=== PATIENT | male | born 1985 | race Caucasian/White ===

== ENCOUNTER 2017-04-26 13:00 | Emergency (ER) | payer OTHER ==
[2017-04-26 13:09] VITALS: RESP 16; TEMP 98.6
--- NOTE | 2017-04-26 13:16 | CPEKG ---
Heart Rate: 87 RR Interval: 690 P-R Interval: 144 QRSD Interval: 64 QT Interval: 356 QTC Interval: 429 P [place]: 79 QRS [place]: 56 T Wave [place]: 20 EKG Severity - NORMAL ECG - EKG Impression: SINUS RHYTHM Electronically Signed By: Irwin Corrales 26-Apr-2017 14:03:54
[2017-04-26] MEDS ORDERED: MAG HYDROX/AL HYDROX/SIMETH 30 ML UDCUP PO ONE (14:01)
[2017-04-26] MEDS ORDERED: LIDOCAINE 2% VISCOUS 15 ML UDCUP PO ONE (14:01)
[2017-04-26] MEDS ORDERED: HYOSCYAMINE SULFATE 0.125 MG TAB PO ONE (14:01)
--- NOTE | 2017-04-26 14:03 | EDPHY ---
H & P Stated Complaint: cp/sob/nausea x 2 days Time Seen by Provider: 04/26/17 13:20 HPI/ROS: CHIEF COMPLAINT: Substernal chest discomfort, dyspnea HISTORY OF PRESENT ILLNESS: The patient presents to the ED with a 2 day history of constant mild substernal chest discomfort with associated dyspnea. The patient states his pain is not positional or pleuritic. He denies history of fall or trauma. Patient denies history of productive cough. The patient has no prior history of the symptoms. He has no risk factors for coronary artery disease. The patient does not smoke. He does have a history of Crohn's disease but does not take medications for this condition. The patient denies positional changes in his chest pain. The patient has not taken any over-the- counter medications for his symptoms. REVIEW OF SYSTEMS: A comprehensive 10 point review of systems is otherwise negative aside from elements mentioned in the history of present illness. Source: Patient Exam Limitations: No limitations - Personal History Current Tetanus/Diphtheria Vaccine: Unsure - Medical/Surgical History Hx Asthma: No Hx Chronic Respiratory Disease: No Hx Diabetes: No Hx Cardiac Disease: No Hx Renal Disease: No Hx Cirrhosis: No Hx Alcoholism: No Hx HIV/AIDS: No Hx Splenectomy or Spleen Trauma: No Other PMH: denies - Social History Smoking Status: Never smoked - Physical Exam Exam: General Appearance: Alert, no distress Eyes: Pupils equal and round no pallor or injection ENT, Mouth: Mucous membranes moist Respiratory: There are no retractions, lungs are clear to auscultation Cardiovascular: Regular rate and rhythm Gastrointestinal: Abdomen is soft and nontender, no masses, bowel sounds normal Neurological: A&O, normal motor function, normal sensory exam, normal cranial nerves Skin: Warm and dry, no rashes Musculoskeletal: Neck is supple nontender Extremities: symmetrical, full range of motion Constitutional: Initial Vital Signs Temperature (C) 37 C 04/26/17 13:07 Heart Rate 77 04/26/17 13:07 Respiratory Rate 16 04/26/17 13:07 Blood Pressure 92/64 L 04/26/17 13:07 O2 Sat (%) 99 04/26/17 13:07 O2 Delivery Mode Room Air Allergies/Adverse Reactions: codeine Allergy (Verified 04/26/17 13:07) Home Medications: Medication Instructions Recorded NK [No Known Home Meds] 11/01/17 Medical Decision Making - Diagnostics EKG Interpretation: EKG: Complete interpretation has been separately recorded in the [email or web address] archive. Summary impression: Sinus rhythm, rate 87 Imaging Results: Imaging Impressions Chest X-Ray 04/26/17 14:01 Impression: Normal. Clear lungs. Chest/Thorax CTA 04/26/17 14:50 Impression: No visible pulmonary embolus. Findings discussed with Irwin Corrales 04/26/2017 at 15:58. ED Course/Re-evaluation: The patient presents to the ED for evaluation of 2 days of mild constant substernal pain. Patient's vital signs are stable. The patient's EKG demonstrates no evidence of myocardial infarction or pericarditis. The patient was noted to have an elevated D-dimer of 2.3. A CT scan of the chest was obtained which demonstrates no evidence of PE, dissection, pneumonia or pneumothorax. The patient did receive a GI cocktail without significant improvement of his symptoms. 30 mg of Toradol was ordered for the patient at 4:00 p.m.. I reassessed the patient at 4:15 p.m.. I have informed him of his workup in the emergency department. The patient will be instructed to use ibuprofen 600 mg 3 times a day for the next 7 days. I do believe his symptoms are likely secondary to mild pleurisy. The patient will be discharged home with instructions to return to the ED for markedly worsening symptoms or other concerns. Differential Diagnosis: Differential diagnosis considered includes zoster, pneumonia, pulmonary embolism , pneumothorax, myocarditis, pericarditis - Data Points Laboratory Results: Laboratory Results 04/26/17 13:17 04/26/17 13:17 04/26/17 04/26/17 04/26/17 13:17 13:17 13:17 WBC 3.80 10^3/uL 10^3/uL (3.80-9.50) RBC 5.54 10^6/uL 10^6/uL (4.40-6.38) Hgb 17.6 g/dL H g/dL (13.7-17.5) Hct 48.1 % % (40.0-51.0) MCV 86.8 fL fL (81.5-99.8) MCH 31.8 pg pg (27.9-34.1) MCHC 36.6 g/dL g/dL (32.4-36.7) RDW 11.2 % L % (11.5-15.2) Plt Count 230 10^3/uL 10^3/uL (150-400) MPV 10.6 fL fL (8.7-11.7) Neut % (Auto) 50.3 % % (39.3-74.2) Lymph % (Auto) 35.8 % % (15.0-45.0) [place] % (Auto) 12.6 % % (4.5-13.0) Eos % (Auto) 0.5 % L % (0.6-7.6) Baso % (Auto) 0.5 % % (0.3-1.7) Nucleat RBC Rel Count 0.0 % % (0.0-0.2) Absolute Neuts (auto) 1.91 10^3/uL 10^3/uL (1.70-6.50) Absolute Lymphs (auto) 1.36 10^3/uL 10^3/uL (1.00-3.00) Absolute Monos (auto) 0.48 10^3/uL 10^3/uL (0.30-0.80) Absolute Eos (auto) 0.02 10^3/uL L 10^3/uL (0.03-0.40) Absolute Basos (auto) 0.02 10^3/uL 10^3/uL (0.02-0.10) Absolute Nucleated RBC 0.00 10^3/uL 10^3/uL (0-0.01) Immature Gran % 0.3 % % (0.0-1.1) Immature Gran # 0.01 10^3/uL 10^3/uL (0.00-0.10) D-Dimer 2.36 ug/mLFEU H ug/mLFEU (0.00-0.50) Sodium 142 mEq/L mEq/L (134-144) Potassium 4.3 mEq/L mEq/L (3.5-5.2) Chloride 100 mEq/L mEq/L (97-110) Carbon Dioxide 25 mEq/l mEq/l (22-31) Anion Gap 17 mEq/L H mEq/L (8-16) BUN 12 mg/dL mg/dL (7-23) Creatinine 0.8 mg/dL mg/dL (0.7-1.3) Estimated GFR > 60 Glucose 108 mg/dL H mg/dL (70-100) Calcium 9.6 mg/dL mg/dL (8.5-10.4) Troponin I < 0.012 ng/mL ng/mL (0.000-0.034) Medications Given: Discontinued Medications Al Hydroxide/Mg Hydroxide (Maalox Susp) 30 ml PO ONCE ONE Stop: 04/26/17 14:02 Last Admin: 04/26/17 14:36 Dose: 30 ml Hyoscyamine Sulfate (Levsin, Hyomax-Sl) 0.25 mg PO ONCE ONE Stop: 04/26/17 14:02 Last Admin: 04/26/17 14:36 Dose: 0.25 mg Lidocaine (Lidocaine 2% Viscous) 15 ml PO ONCE ONE Stop: 04/26/17 14:02 Last Admin: 04/26/17 14:36 Dose: 15 ml Departure - Departure Disposition: Home, Routine, Self-Care Clinical Impression: Pleurisy Condition: Good Instructions: Pleurisy (ED) Additional Instructions: 1. Take Ibuprofen or Motrin 600 mg by mouth three times a day. 2. Please return to the ED for markedly worsening symptoms or other concerns. 3. Your EKG, laboratory testing, chest x-ray and CT scan are all within normal limits without evidence of obvious disease noted. Referrals: NONA KIDD [Primary Care Provider] - As per Instructions
[2017-04-26 14:09] LABS: PLATELET COUNT 230 10^3/uL (150-400)
[2017-04-26] MEDS ORDERED: IOPAMIDOL (ISOVUE 370) 100 ML BTL IV ONE (15:33)
[2017-04-26] MEDS ORDERED: KETOROLAC 30 MG/1 ML SDV IVP ONE (16:00)
[2017-04-26 16:56] VITALS: BP 141/99; PULSE 56; O2SAT 96
== END 2017-04-26 16:54 | disposition home or self-care (01) ==
DX: R09.1 Pleurisy (principal)
CPT/HCPCS: 96374; J1885; Q9967